=== PATIENT | male | born 1990 | race Caucasian/White ===

== ENCOUNTER 2017-11-03 14:42 | Emergency (ER) | payer OTHER ==
[~2017-11-03] VITALS: Ht 177.8 cm; Wt 99.8 kg
[2017-11-03 14:45] VITALS: BP 127/83
[2017-11-03] MEDS ORDERED: CIPRODEX OTIC7.5 ML OTIC (15:11)
[2017-11-03] MEDS ORDERED: TRAMADOL 50 MG50 MG PO (15:11)
== END 2017-11-03 15:21 | disposition home or self-care (01) ==
LOC: ER 14:42
DX: H60.91 Unspecified otitis externa, right ear (principal); Z91.013 Allergy to seafood